=== PATIENT | female | born 2000 | race Caucasian/White ===

== ENCOUNTER 2023-02-19 06:36 | Emergency (ER) | payer OTHER ==
[2023-02-19 07:19] LABS: Clarity Cloudy (Clear)
[2023-02-19 07:24] LABS: Nitrite Unable to Interpret (Negative)
[2023-02-19 07:25] LABS: Leukocyte Unable to Interpret (Negative)
[2023-02-19 07:26] LABS: Bilirubin Unable to Interpret (Negative); Glucose, Urine (Dipstick) Unable to Interpret mg/dL (Negative); Ketone, Urine Negative (Negative); Protein, Urine (Dipstick) Unable to Interpret mg/dL (Neg-Trace)
[2023-02-19 07:27] LABS: Blood, Urine Moderate (Negative); Urobilinogen UNABLE TO INTERPRET mg/dL (Less than 2)
[2023-02-19 07:28] LABS: Bacteria/HPF 2+ HPF (None Seen); CAUTI Indications for Culture Pelvic or flank pain; Squamous Epithelial 0-3 HPF (0-3); WBC/HPF Greater than 50 HPF (0-3)
[2023-02-19 07:30] LABS: Urine Culture Reflex Yes Yes
[2023-02-19] MEDS ORDERED: cefTRIAXone (ROCEPHIN) 1 GM VIAL ONE (07:54)
[2023-02-19] MEDS ORDERED: Lidocaine 1% PF 5 ML VIAL ONE (07:54)
== END 2023-02-19 08:16 | disposition home or self-care (01) ==
LOC: MADERS 06:36
DX: N39.0 Urinary tract infection, site not specified (principal)
CPT/HCPCS: 81001; 87086; 96372; 99283; J0696